=== PATIENT | male | born 1935 | race Caucasian/White ===

== ENCOUNTER 2017-07-02 21:11 | Emergency (ER) | payer MEDICARE, OTHER ==
[~2017-07-02] VITALS: Ht 180.3 cm; Wt 73.5 kg
[2017-07-02] MEDS ORDERED: LEVOTHYROXINE137 MCG PO (21:18)
[2017-07-02] MEDS ORDERED: VERAPAMIL ER240 MG PO (21:19)
[2017-07-02] MEDS ORDERED: IRBESARTAN300 MG PO (21:19)
[2017-07-02] MEDS ORDERED: SIMVASTATIN20 MG PO (21:19)
[2017-07-02] MEDS ORDERED: OLANZAPINE10 MG PO (21:20)
[2017-07-02] MEDS ORDERED: VITAMIN D1000 UNI1 PO (21:22)
[2017-07-02] MEDS ORDERED: LORAZEPAM0.5 MG PO (21:22)
[2017-07-02] MEDS ORDERED: NORCO 5-325 TA1 EACH PO (21:22)
[2017-07-02] MEDS ORDERED: MULTIVITAMINS1 EAC7 PO (21:23)
[2017-07-02] MEDS ORDERED: ASPIR-LOW81 MG PO (21:23)
[2017-07-02] MEDS ORDERED: HYDROCHLOROTH12.5 M1 PO (21:24)
--- OUTSIDE RECORDS SUMMARY | 2017-07-02 22:32 | XMS | Encounter Summary ---
Demographics + + + | Address | [address] | | | [place] [address] | + + + | Home Phone | | + + + | Preferred Language | Unknown | + + + | Marital Status | Single | + + + | Christianity Affiliation | Unknown | + + + | Race | Unknown | + + + | Ethnic Group | Other Race | + + + Author + + + | Author | [facility] | + + + | Organization | [facility] | + + + | Address | Unknown | + + + | Phone | Unavailable | + + + Care Team Providers + +------+ + | Care Director Of Medical Review Name | Role | Phone | + +------+ + PCP | Unavailable | + +------+ + Encounter Details +--------+ + + + + | Date | Type | Department | Care Team | Description | +--------+ + + + + | 05/23/ | Hospital | Dermatopathology | | | | 2017 | Encounter | [address] | | | | | | Mail Code: CH16D | | | | | | [facility] | | | | | | and Healing, [address] | | | | | | [place], [place] | | | | | | [address] | | | | | | [phone] | | | +--------+ + + + + Social History + +-------+ +--------+------+ | Tobacco Use | Types | Packs/Day | Years | Date | | | | | Used | | + +-------+ +--------+------+ | Never Assessed | | | | | + +-------+ +--------+------+ + + + | Sex Assigned at | Date Recorded | | | | + + + | Not on file | | + + + as of this encounter Plan of Treatment Not on fileas of this encounter Results DERM PATHOLOGY (05/23/2017) + + + + | Component | Value | Ref Range | + + + + | DERMATOPATHOLOGY(WET | SOURCE OF SPECIMEN:A Lt. frontal scalp, | | | MNT) | shave biopsy ED&C CLINICAL | | | | DESCRIPTION:3 x 2 mm pink papule; r/o | | | | NMSC. GROSS DESCRIPTION:Received in | | | | formalin is a specimen labeled Feliciano, | | | | Bhupendra:A: Specimen is labeled "Lt frontal | | | | scalp" and consists of an irregularshave of | | | | scaly papular white-angeles skin, [id number]. The | | | | surgical margin isinked blue; the tissue | | | | is bisected, and entirely submitted in | | | | cassette A1. MICROSCOPIC | | | | DESCRIPTION:There is epidermal hyperplasia | | | | with interweaving of the rete and nuclei | | | | ofuniform size and shape. | | | | DIAGNOSIS:SEBORRHEIC KERATOSIS. My | | | | electronic signature indicates that I have | | | | personally reviewed alldiagnostic slides, | | | | the gross and/or microscopic portion of | | | | thisreport and formulated the final | | | | diagnosis. Electronically signed | | | | by: Whitney Rodriguez | | | | Martina Completed: | | | | 05/25/2017 4:39PM | | | |Pathologist | | | |Date Completed: 05/25/2017 4:39PM | | | | | | + + + + + + + | Specimen | Performing Laboratory | + + + | | [facility] Mailcode [id number] [facility] | | | [place] [address] | + + + in this encounter Visit Diagnoses + + | Diagnosis | + + | Other seborrheic keratosis | + + Admitting Diagnoses + + | Diagnosis | + + | Neoplasm of uncertain behavior of skin | + +
--- NOTE | 2017-07-03 06:44 | EKG ---
[facility] [address] [facility] [place] [address] Signed Normal sinus rhythm Left axis deviation Left ventricular hypertrophy with QRS widening Abnormal ECG No previous ECGs available Confirmed by TONY DE JESUS MD ([id number]) on 07/03/2017 6:44:28 AM Electronically Signed By: TONY DE JESUS MD 07/03/17 0644 PATIENT NAME: MICK IRENE NANCY Electrocardiogram DATE OF : 33 PHYSICIAN: TONY DE JESUS MD REPORT #: [id number] REPORT IS CONFIDENTIAL AND NOT TO BE RELEASED WITHOUT AUTHORIZATION
== END 2017-07-02 23:12 | disposition home or self-care (01) ==
LOC: ED 21:11
DX: R55 Syncope and collapse (principal); Z88.8 Allergy status to other drugs, medicaments and biological substances; Z88.6 Allergy status to analgesic agent; Z79.899 Other long term (current) drug therapy; Z79.82 Long term (current) use of aspirin
CPT/HCPCS: 71010; 80053; 84484; 85025; 93005; 93010; 99283; J7030